=== PATIENT | male | born 1980 | race African-American/Black ===

== ENCOUNTER 2017-01-22 09:34 | Emergency (ER) | payer SELFPAY ==
[2017-01-22 10:10] LABS: #Basophils 0.1 thou/uL (0.0-0.2); #Eosinphils 0.2 thou/uL (0.0-0.7); #Lymphocytes 1.8 thou/uL (1.20-3.40); #Monocytes 0.7 thou/uL (0.11-0.59); #Neutrophils 4.5 thou/uL (1.40-6.50); %Basophils 0.9 % (0.0-1.0); %Eosinophils 2.3 % (0.0-10.0); %Lymphocytes 24.2 % (21.0-51.0); Mean Platelet Volume 6.2 fL (7.4-10.4); Red Blood Cell (RBC) Count 4.71 mill/uL (4.70-6.10); White Blood Cell (WBC) Count 7.2 thou/uL (4.8-10.8)
[2017-01-22 10:37] LABS: ALT (SGPT) 15 U/L (8-55); AST (SGOT) 19 U/L (5-34); Alkaline Phosphatase 73 U/L (40-150); Anion Gap 11 mmol/L (10-20); BUN (Urea Nitrogen) 16 mg/dL (8.9-20.6); Bilirubin, Total 0.3 mg/dL (0.2-1.2); Calc. Creatinine Clearance 0 mL/min (70-130); Calcium 9.8 mg/dL (7.8-10.44); Carbon Dioxide 26 mmol/L (22-29); Chloride 105 mmol/L (98-107); Estimated GFR-MDRD Greater than 90; Lipase 30 U/L (8-78); Protein, Total 7.1 g/dL (6.0-8.3)
[2017-01-22 11:01] LABS: Bilirubin Negative (Negative); Blood, Urine Small (Negative); Glucose, Urine (Dipstick) Negative (Negative); Ketone, Urine Negative (Negative); Nitrite Negative (Negative); Protein, Urine (Dipstick) Negative (Neg-Trace); Urobilinogen 0.2 mg/dL (0.2-1.0)
[2017-01-22 11:05] LABS: Bacteria/HPF None Seen HPF (None Seen); Hyaline Casts/LPF 0-3 HYALINE CAST LPF (0-3 Hyaline); Squamous Epithelial 0-3 HPF (0-3)
--- NOTE | 2017-01-22 11:18 | CT ---
CT BRAIN WITHOUT CONTRAST: Date: 01/22/17 HISTORY: Dizziness. Weakness. COMPARISON: None. FINDINGS: No acute territorial infarct or hemorrhage. No midline shift or mass effect. Ventricular size and ex tra-axial CSF spaces are normal. Soft tissues are unremarkable. Calvarium is intact. Old injury to t he left lamina papyracea. IMPRESSION: No acute intracranial abnormality. POS: MED
[2017-01-22 11:20] LABS: Troponin I Less than 0.010 ng/mL (< 0.028)
[2017-01-22] MEDS ORDERED: Meclizine HCl 25 MG TAB ONE (12:32)
== END 2017-01-22 14:21 | disposition home or self-care (01) ==
LOC: ERS 09:34
DX: R42 Dizziness and giddiness (principal); F17.210 Nicotine dependence, cigarettes, uncomplicated
CPT/HCPCS: 36415; 70450; 80053; 81003; 81015; 82553; 83690; 84484; 85025; 93005

== ENCOUNTER 2017-08-24 12:05 | Emergency (ER) | payer SELFPAY ==
[2017-08-24 13:53] LABS: Anion Gap 9 mmol/L (10-20); BUN (Urea Nitrogen) 11 mg/dL (8.9-20.6); CK (CPK) 302 U/L (30-200); Calc. Creatinine Clearance 0 mL/min (70-130); Calcium 9.5 mg/dL (7.8-10.44); Carbon Dioxide 25 mmol/L (22-29); Chloride 110 mmol/L (98-107); Estimated GFR-MDRD Greater than 90; Glucose 100 mg/dL (70-105); Sodium 140 mmol/L (136-145)
== END 2017-08-24 15:25 | disposition home or self-care (01) ==
LOC: ERS 12:05
DX: T75.4XXA Electrocution, initial encounter (principal); F17.210 Nicotine dependence, cigarettes, uncomplicated; W86.1XXA Exposure to industrial wiring, appliances and electrical machinery, initial encounter; Y99.0 Civilian activity done for income or pay
CPT/HCPCS: 80048; 82550; 93005

== ENCOUNTER 2017-12-20 16:27 | Emergency (ER) | payer SELFPAY ==
[2017-12-20] MEDS ORDERED: Fluorescein Opthalmic Strip ONE (17:18)
[2017-12-20] MEDS ORDERED: Proparacaine 0.5% Opth 15 ML BOT ONE (17:18)
== END 2017-12-20 17:55 | disposition home or self-care (01) ==
LOC: ERS 16:27
DX: T15.02XA Foreign body in cornea, left eye, initial encounter (principal); F17.210 Nicotine dependence, cigarettes, uncomplicated; Z71.6 Tobacco abuse counseling
CPT/HCPCS: 65222; 99406